=== PATIENT | female | born 1955 | race Caucasian/White ===

== ENCOUNTER 2019-06-08 16:56 | Inpatient (IN) | payer BC, OTHER ==
[~2019-06-08] VITALS: Ht 157.5 cm; Wt 80.7 kg
[2019-06-08 17:01] VITALS: BP 132/78
[2019-06-08 17:35] LABS: ABSOLUTE NEUTROPHILS 8.2 thou/uL (1.4-8.2); BASOPHILS 1.3 % (0.0-2.0); EOSINOPHILS 1.2 % (0.0-3.0); HEMOGLOBIN 13.3 gm/dL (12.0-15.0); LYMPHOCYTES 36.7 % (24.0-44.0); MCH 30.8 pg (26.0-34.0); MCHC 34.2 g/dL (28.0-37.0); MONOCYTES 5.8 % (1.0-8.0); PLATELET COUNT 284 thou/uL (150-400); RBC 4.33 mil/uL (4.20-5.00); RDW 13.9 % (10.5-14.5)
[2019-06-08 17:42] LABS: ANION GAP 9 mmol/L (7-16); BUN 22 mg/dL (7-18); CALCIUM 10.1 mg/dL (8.5-10.1); CHLORIDE 102 mmol/L (98-107); CO2 25 mmol/L (21-32); CREATININE 1.1 mg/dL (0.6-1.0); GLUCOSE 113 mg/dL (74-106); POTASSIUM 3.8 mmol/L (3.5-5.1); SODIUM 136 mmol/L (136-145)
[2019-06-08 17:46] LABS: URINE BILIRUBIN NEGATIVE (Negative); URINE BLOOD 2+ (Negative); URINE CLARITY CLEAR; URINE COLOR YELLOW; URINE GLUCOSE-RANDOM* NEGATIVE (Negative); URINE KETONES NEGATIVE (Negative); URINE LEUKOCYTES-REFLEX NEGATIVE (Negative); URINE NITRITE-REFLEX NEGATIVE (Negative); URINE PROTEIN (DIPSTICK) NEGATIVE (Negative); URINE SPECIFIC GRAVITY <= 1.005 (1.005-1.035); URINE UROBILINOGEN 0.2 E.U./dl (0.2-1.0)
[2019-06-08 17:54] LABS: CASTS None Seen /LPF (None Seen); SQUAMOUS 4-10 Moderate /LPF (0-3)
[2019-06-08 17:54] LABS: ALBUMIN 4.2 g/dL (3.4-5.0); DIRECT BILIRUBIN < 0.1 mg/dL (<0.1-0.2); SGOT 26 U/L (15-37); SGPT 27 U/L (30-65); TOTAL BILIRUBIN 0.4 mg/dL (<0.1-1.0); TOTAL PROTEIN 7.9 g/dL (6.4-8.2); TROPONIN-I <0.06 ng/mL (<0.06)
[2019-06-08 17:55] LABS: BACTERIA-REFLEX 1-9 Few /HPF (None Seen); CRYSTALS None Seen /LPF (None Seen); URINE RBC 3-10 Few /HPF (0-2); URINE WBC-REFLEX 0-5 Rare /HPF (0-5)
[2019-06-08 18:14] LABS: LIPASE 3070 U/L (73-393)
[2019-06-08] MEDS ORDERED: LIPITOR 40 MG T40 M1 PO (19:33)
[2019-06-08] MEDS ORDERED: LISINOPRIL40 MG PO (19:33)
[2019-06-08] MEDS ORDERED: CYCLOBENZAPRINE10 MG PO (19:33)
[2019-06-08] MEDS ORDERED: CLONAZEPAM 0.50.5 M1 PO (19:33)
[2019-06-08] MEDS ORDERED: DESYREL150 MG PO (19:34)
[2019-06-08] MEDS ORDERED: DULOXETINE HCL60 MG PO (19:35)
[2019-06-08] MEDS ORDERED: METFORMIN HCL500 MG PO (19:37)
[2019-06-08] MEDS ORDERED: VITAMIN B-121000 MC2 PO (19:41)
[2019-06-08] MEDS ORDERED: CALCIUM500 MG PO (19:41)
[2019-06-08 20:02] LABS: AMP/METHAMP Negative (Negative); BARBITURATES Negative (Negative); BENZODIAZEPINES Negative (Negative); COCAINE Negative (Negative); METHADONE Negative (Negative); OPIATES Negative (Negative); PCP Negative (Negative)
[2019-06-08 21:37] VITALS: BP 158/64
[2019-06-08 22:11] VITALS: BP 113/50
[2019-06-09 04:45] VITALS: BP 116/61
[2019-06-09 05:56] LABS: ABSOLUTE NEUTROPHILS 4.9 thou/uL (1.4-8.2); BASOPHILS 0.4 % (0.0-2.0); EOSINOPHILS 1.2 % (0.0-3.0); HEMATOCRIT 35.6 % (37.0-47.0); LYMPHOCYTES 33.9 % (24.0-44.0); MCH 30.9 pg (26.0-34.0); MCHC 33.7 g/dL (28.0-37.0); MCV 91.7 fL (80.0-100.0); MONOCYTES 8.6 % (1.0-8.0); PLATELET COUNT 227 thou/uL (150-400); POLYS 55.9 % (36.0-66.0); RBC 3.89 mil/uL (4.20-5.00); RDW 13.6 % (10.5-14.5); WBC 8.8 thou/uL (4.0-11.0)
[2019-06-09 06:08] LABS: CALCIUM 8.2 mg/dL (8.5-10.1); CREATININE 1.1 mg/dL (0.6-1.0); MAGNESIUM 1.9 mg/dL (1.8-2.4); POTASSIUM 3.9 mmol/L (3.5-5.1)
--- NOTE | 2019-06-09 08:21 | EKG ---
[facility] [place] [address] ELECTROCARDIOGRAM REPORT Name: MADISON RANDHAWA Room #: 440-P ADM IN M.R.#: [id number] Admission: 06/08/19 Attend Phys: Edouard Rajan MD Discharge: Date of : 59 Report #: [id number] THIS REPORT FOR: cc: Ena Michael MD, Lisa A. MD Lundgren,Samson Ford MD [facility] ~ THIS REPORT FOR: //name// [facility] ED Test Date: 2019-06-08 Test Time: 17:45:27 Pat Name: MADISON RANDHAWA Department: Room: 440 Gender: F Electronic Publications Specialist: JUVENTINO : 1955 Requested By: Roseanna Orozco Order Number: [id number] MD: Samson Fraire Measurements Intervals [place] Rate: 64 P: 63 AK: 156 QRS: 66 QRSD: 95 T: 57 QT: 394 QTc: 407 Interpretive Statements Sinus rhythm No significant abnormality No previous ECG available for comparison Electronically Signed On 06-09-2019 8:20:23 CDT by Samson Fraire [email or web address] <ELECTRONICALLY SIGNED> By: Samson Fraire MD, FAC 06/09/19 0820 1745 1745 Samson Fraire MD, [facility] /EPI
[2019-06-09 17:13] VITALS: BP 118/48
[2019-06-09 17:16] VITALS: BP 118/48
[2019-06-12 11:07] LABS: IgG 853 mg/dL (700-1600)
== END 2019-06-09 17:51 | disposition home or self-care (01) | DRG 440 ==
LOC: ER 16:56 → 4S 19:58 → EROBS 19:58 → 4S 22:35 → ENTRNSPT 06-09 17:30 → CMPTRNSPT 06-09 17:34 → 4S 06-09 17:51
PROVIDERS: Nurse Practitioner; ADMIT Internal Medicine
DX: K85.90 Acute pancreatitis without necrosis or infection, unspecified (principal); F32.9 Major depressive disorder, single episode, unspecified; E11.9 Type 2 diabetes mellitus without complications; E78.5 Hyperlipidemia, unspecified; I10 Essential (primary) hypertension; F41.9 Anxiety disorder, unspecified; M79.7 Fibromyalgia; H35.30 Unspecified macular degeneration; E66.9 Obesity, unspecified; Z68.32 Body mass index [BMI] 32.0-32.9, adult; Z90.49 Acquired absence of other specified parts of digestive tract; Z90.710 Acquired absence of both cervix and uterus; Z88.8 Allergy status to other drugs, medicaments and biological substances
CPT/HCPCS: 10102

== ENCOUNTER 2019-07-04 13:19 | Emergency (ER) | payer BC, OTHER ==
[~2019-07-04] VITALS: Ht 157.5 cm; Wt 76.7 kg
[~2019-07-04 13:19] MED LIST: CALCIUM500 MG PO; CLONAZEPAM 0.50.5 M1 PO; CYCLOBENZAPRINE10 MG PO; DESYREL150 MG PO; DULOXETINE HCL60 MG PO; LIPITOR 40 MG T40 M1 PO; LISINOPRIL40 MG PO; METFORMIN HCL500 MG PO; VITAMIN B-121000 MC2 PO
[2019-07-04] MEDS ORDERED: B-COMPLEX PLUS1 EACH PO (13:41)
[2019-07-04] MEDS ORDERED: PRESERVISION A1 EAC2 PO (13:41)
[2019-07-04 14:06] LABS: ABSOLUTE NEUTROPHILS 12.7 thou/uL (1.4-8.2); BASOPHILS 0.6 % (0.0-2.0); HEMATOCRIT 43.2 % (37.0-47.0); HEMOGLOBIN 14.4 gm/dL (12.0-15.0); LYMPHOCYTES 19.8 % (24.0-44.0); MCH 30.7 pg (26.0-34.0); MCHC 33.4 g/dL (28.0-37.0); MCV 91.7 fL (80.0-100.0); MONOCYTES 8.4 % (1.0-8.0); PLATELET COUNT 291 thou/uL (150-400); POLYS 70.2 % (36.0-66.0); RBC 4.71 mil/uL (4.20-5.00); RDW 13.6 % (10.5-14.5)
[2019-07-04 14:09] LABS: URINE BILIRUBIN NEGATIVE (Negative); URINE BLOOD 1+ (Negative); URINE CLARITY CLEAR; URINE COLOR YELLOW; URINE GLUCOSE-RANDOM* NEGATIVE (Negative); URINE KETONES NEGATIVE (Negative); URINE LEUKOCYTES-REFLEX NEGATIVE (Negative); URINE NITRITE-REFLEX NEGATIVE (Negative); URINE PROTEIN (DIPSTICK) 1+ (Negative); URINE UROBILINOGEN 0.2 E.U./dl (0.2-1.0)
[2019-07-04 14:23] LABS: CALCIUM 10.4 mg/dL (8.5-10.1); CREATININE 1.2 mg/dL (0.6-1.0); POTASSIUM 3.6 mmol/L (3.5-5.1)
[2019-07-04 14:28] LABS: ALBUMIN 4.3 g/dL (3.4-5.0); TOTAL BILIRUBIN 0.5 mg/dL (<0.1-1.0); TOTAL PROTEIN 8.2 g/dL (6.4-8.2)
[2019-07-04 14:34] LABS: CASTS None Seen /LPF (None Seen); MUCUS 4-6 Moderate strn/LPF (None Seen); SQUAMOUS >10 Many /LPF (0-3)
[2019-07-04 14:35] LABS: CRYSTALS None Seen /LPF (None Seen); URINE RBC 0-2 Rare /HPF (0-2); URINE WBC-REFLEX 0-5 Rare /HPF (0-5)
[2019-07-04] MEDS ORDERED: PROTONIX40 M2 PO (16:56)
[2019-07-04] MEDS ORDERED: ZOFRAN ODT4 MG PO (16:56)
[2019-07-04] MEDS ORDERED: IMODIUM A-D2 MG PO (16:56)
[2019-07-04 17:36] VITALS: BP 133/70
== END 2019-07-04 17:39 | disposition home or self-care (01) ==
LOC: ER 13:19
PROVIDERS: Emergency Medicine
DX: R10.13 Epigastric pain (principal); R19.7 Diarrhea, unspecified; R05 Cough; J02.9 Acute pharyngitis, unspecified; R11.2 Nausea with vomiting, unspecified; E11.9 Type 2 diabetes mellitus without complications; I10 Essential (primary) hypertension; E78.5 Hyperlipidemia, unspecified; F17.210 Nicotine dependence, cigarettes, uncomplicated; Z90.711 Acquired absence of uterus with remaining cervical stump; Z79.899 Other long term (current) drug therapy; Z88.8 Allergy status to other drugs, medicaments and biological substances